=== PATIENT | female | born 1990 | race Caucasian/White ===

== ENCOUNTER 2020-10-21 16:38 | Emergency (ER) | payer OTHER ==
[2020-10-21] MEDS ORDERED: XYLOCAINE 1% HCL 20 ML MDV IJ ONE (16:39)
[2020-10-21 16:55] VITALS: BP 123/75; PULSE 91; O2SAT 97
[2020-10-21] MEDS ORDERED: Zithromax 250 MG TABLET PO ONE (17:16)
[2020-10-21] MEDS ORDERED: Rocephin 500 MG INJ IM ONE (17:16)
[2020-10-21] MEDS ORDERED: Rocephin 500 MG INJ ONE (17:25)
[2020-10-21] MEDS ORDERED: Zithromax 250 MG TABLET ONE (17:25)
--- NOTE | 2020-10-21 17:26 | ERPHSYRPT ---
- History of Present Illness Time Seen by Provider: 10/21/20 17:14 Source: patient Exam Limitations: no limitations Patient Subjective Stated Complaint: pt here for possible STI, she states that she as a white thick discharge, she has occ pelvic pain Triage Nursing Assessment: pt alert, resp easy, skin w/d/p. face mask in place, Physician History: 30 years old female with history of gonorrhea in the past presented in the ER with vaginal discharge for almost 1 week. Patient reports white creamy/milky discharge foul-smelling gradually worsening without any associated pelvic/abdominal cramping/pain. No fever or chills reported. No difficulty urination. Sexually active with one partner but is not sure about his loyalty. Timing/Duration: week(s) (1), gradual onset, worse Pain Radiation: none Sexual intercourse history: single partner Associated Symptoms: vaginal discharge Allergies/Adverse Reactions: Penicillins Allergy (Verified 10/21/20 16:55) Home Medications: No Reportable Medications [No Reported Medications] 10/21/20 [History] Hx Influenza Vaccination/Date Given: No Hx Pneumococcal Vaccination/Date Given: No Travel Risk - International Travel Have you traveled outside of the country in past 3 weeks: No - Coronavirus Screening Are you exhibiting any of the following symptoms?: No - Vaccine Status Have you recieved a Covid-19 vaccination: No - Review of Systems Constitutional: No Symptoms Ears, Nose, & Throat: No Symptoms Respiratory: No Symptoms Cardiac: No Symptoms Abdominal/Gastrointestinal: No Symptoms Genitourinary Symptoms: Vaginal Discharge Musculoskeletal: No Symptoms Skin: No Symptoms Neurological: No Symptoms Psychological: No Symptoms Hematologic/Lymphatic: No Symptoms Immunological/Allergic: No Symptoms - Past Medical History Pertinent Past Medical History: No - Past Surgical History Past Surgical History: No - Social History Smoking Status: Current every day smoker Exposure to second hand smoke: Yes Drug Use: marijuana Patient Lives Alone: No - Female History Hx Last Menstrual Period: september 27 Hx Now: No - Nursing Vital Signs Nursing Vital Signs: Initial Vital Signs Temperature 98.3 F 10/21/20 16:49 Pulse Rate 91 H 10/21/20 16:49 Respiratory Rate 16 10/21/20 16:49 Blood Pressure 123/75 10/21/20 16:49 O2 Sat by Pulse Oximetry 97 10/21/20 16:49 Pain Scale Pain Intensity 0 - Physical Exam General Appearance: no apparent distress, alert Ears, Nose, Throat Exam: pharynx normal Neck Exam: normal inspection, non-tender, supple, full range of motion Respiratory Exam: normal breath sounds, lungs clear Cardiovascular Exam: regular rate/rhythm, normal heart sounds Gastrointestinal/Abdomen Exam: soft, normal bowel sounds, No tenderness Extremity Exam: normal inspection, normal range of motion Neurologic Exam: alert, 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 Skin Exam: normal color SpO2 Interpretation: normal SpO2: 97 O2 Delivery: Room Air Ordered Tests: Active Orders 24 hr Category Date Time Status HCG,QUALITATIVE URINE Stat Lab 10/21/20 17:25 Ordered UA W/RFX UR CULTURE Stat Lab 10/21/20 17:25 Ordered Wet Prep Stat Lab 10/21/20 17:25 Ordered Medication Summary Discontinued Medications Generic Name Dose Route Start Last Admin Trade Name Robq PRN Reason Stop Dose Admin Azithromycin 1,000 mg 10/21/20 17:16 10/21/20 17:31 Zithromax 250 Mg Tablet PO 10/21/20 17:17 1,000 mg STAT ONE Administration Azithromycin Confirm 10/21/20 17:25 Zithromax 250 Mg Tablet Administered 10/21/20 17:26 Dose 1,000 mg .ROUTE .STK-MED ONE Ceftriaxone Sodium 500 mg 10/21/20 17:16 10/21/20 17:31 Rocephin 500 Mg Inj IM 10/21/20 17:17 500 mg STAT ONE Administration Ceftriaxone Sodium Confirm 10/21/20 17:25 Rocephin 500 Mg Inj Administered 10/21/20 17:26 Dose 500 mg .ROUTE .STK-MED ONE - Progress Progress: unchanged Air Movement: good Progress Note: 10/21/20 17:44 She is given Rocephin and Zithromax. Safe sex practices recommended. Blood Culture(s) Obtained: No Antibiotics given: Yes Counseled pt/family regarding: diagnosis, need for follow-up - Departure Departure Disposition: Home Clinical Impression: Vaginal discharge Condition: Stable Critical Care Time: No Referrals: DOCTOR,NO FAMILY [Primary Care Provider] - STONEY ALLRED [ACTIVE STAFF] - Follow Up with PCP/3 days Instructions: Pelvic Inflammatory Disease (DC), Screening for Sexually Transmitted Infections Additional Instructions: Follow safe sex practices. Follow-up with primary care physician or health department for further testing like HIV. Return to ER if do not see any improvement in symptoms or if develop abdominal pain/cramping/fever chills etc.
[2020-10-21 17:45] LABS: Bacteria Rare; Clue Cells None Seen; Red Blood Cells None Seen; Trichomonas None Seen; White Blood Cells Rare; Yeast None Seen
[2020-10-21 18:17] LABS: Appearance CLEAR (CLEAR); Bilirubin NEGATIVE (NEGATIVE); Blood NEGATIVE Ery/ul (0-5); Epithelial Cells RARE /HPF (FEW); Glucose NEGATIVE (NEGATIVE); Ketones TRACE (NEGATIVE); Leukocyte Esterase NEGATIVE (NEGATIVE); Mucus SLIGHT /HPF (NEGATIVE); Nitrite NEGATIVE (NEGATIVE); Protein,Urine Dip NEGATIVE (Negative); RBC 0-2 /HPF (0-2); Specific Gravity 1.032 (1.005-1.025); Urobilinogen 2 mg/dL (0-1); WBC 0-2 /HPF (0-5)
[2020-10-21 18:21] LABS: Bacteria NONE SEEN /HPF (NEGATIVE)
[2020-10-21 19:47] LABS: CHLAMYDIA DNA NOT DETECTED (NEGATIVE); GC DNA Probe NOT DETECTED (NEGATIVE)
== END 2020-10-21 18:17 | disposition home or self-care (01) ==
LOC: ED 16:38
DX: N89.8 Other specified noninflammatory disorders of vagina (principal)
CPT/HCPCS: 81001; 84703; 87210; 87491; 87591; 96372; 99284; J0696; A9270-GY

== ENCOUNTER 2021-01-11 22:48 | Emergency (ER) | payer OTHER ==
[2021-01-11] MEDS ORDERED: Rocephin 500 MG INJ IM ONE (23:05)
[2021-01-11] MEDS ORDERED: Vibramycin 100 MG PO ONE (23:06)
--- NOTE | 2021-01-11 23:34 | ERPHSYRPT ---
- History of Present Illness Time Seen by Provider: 01/11/21 23:10 Source: patient Exam Limitations: no limitations Patient Subjective Stated Complaint: pt states she has unprotected sex with a man 2 weeks ago and he told her today that he was positive for gonorrhea. states she has been having some cramping and discharge. Triage Nursing Assessment: pt alert and oriented, answers questions approp. pt ambulatory with steady gait noted. respirations nonlabored. skin warm and dry. Physician History: Patient is a 30-year-old female presents to emergency department for evaluation of suspected gonorrhea. Patient states she had unprotected sexual intercourse with a man 2 weeks ago. Patient was notified today that he tested positive for gonorrhea. Patient states she has been experiencing foul-smelling vaginal discharge and pelvic pressure. No fever. No rash. No nausea or vomiting. No abdominal pain. Symptoms are constant. Symptoms are moderate in intensity. No specific worsening improving factors. Patient voices no other complaints concerns at this time. Timing/Duration: day(s) (4 days) Severity: moderate Modifying Factors: Improves With: nothing Associated Symptoms: denies symptoms Allergies/Adverse Reactions: Penicillins Allergy (Verified 01/11/21 23:11) Rash Hx Tetanus, Diphtheria Vaccination/Date Given: Yes Hx Influenza Vaccination/Date Given: No Hx Pneumococcal Vaccination/Date Given: No Immunizations Up to Date: Yes Travel Risk - International Travel Have you traveled outside of the country in past 3 weeks: No - Coronavirus Screening Are you exhibiting any of the following symptoms?: No Close contact with a COVID-19 positive Pt in past 14-21 Days: No - Vaccine Status Have you recieved a Covid-19 vaccination: No - Review of Systems Constitutional: No Symptoms, No Fever, No Chills Eyes: No Symptoms Ears, Nose, & Throat: No Symptoms Respiratory: No Symptoms, No Cough, No Dyspnea Cardiac: No Symptoms, No Chest Pain, No Edema, No Syncope Abdominal/Gastrointestinal: No Symptoms, No Abdominal Pain, No Nausea, No Vomiting, No Diarrhea Genitourinary Symptoms: No Symptoms, No Dysuria Musculoskeletal: No Symptoms, No Back Pain, No Neck Pain Skin: No Symptoms, No Rash Neurological: No Symptoms, No Dizziness, No Focal Weakness, No Sensory Changes Psychological: No Symptoms Endocrine: No Symptoms Hematologic/Lymphatic: No Symptoms Immunological/Allergic: No Symptoms All Other Systems: Reviewed and Negative - Past Medical History Pertinent Past Medical History: No - Past Surgical History Past Surgical History: No - Social History Smoking Status: Current every day smoker How long have you smoked: 15 yrs Exposure to second hand smoke: Yes Drug Use: marijuana Patient Lives Alone: No - Female History Hx Last Menstrual Period: 12/26/20 Hx Now: No - Nursing Vital Signs Nursing Vital Signs: Initial Vital Signs Temperature 98.2 F 01/11/21 23:00 Pulse Rate 100 H 01/11/21 23:00 Respiratory Rate 18 01/11/21 23:00 Blood Pressure 122/75 01/11/21 23:00 O2 Sat by Pulse Oximetry 100 01/11/21 23:00 Pain Scale Pain Intensity 0 - Physical Exam General Appearance: no apparent distress, alert Eye Exam: PERRL/EOMI, eyes nml inspection Ears, Nose, Throat Exam: normal ENT inspection, TMs normal, pharynx normal, moist mucous membranes Neck Exam: normal inspection, non-tender, supple, full range of motion Respiratory Exam: normal breath sounds, lungs clear, No respiratory distress Cardiovascular Exam: regular rate/rhythm, normal heart sounds, normal peripheral pulses Gastrointestinal/Abdomen Exam: soft, normal bowel sounds, No tenderness, No mass Pelvic Exam: normal external exam, cervical motion tenderness (Mild cervical motion tenderness. Negative for chandelier sign.), other (Scant white vaginal discharge. Moderate foul odor.), No adnexal tenderness, No adnexal mass, No vaginal bleeding Back Exam: normal inspection, normal range of motion, No CVA tenderness, No vertebral tenderness Extremity Exam: normal inspection, normal range of motion, pelvis stable Neurologic Exam: alert, 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, cooperative, normal mood/affect, nml cerebellar function, nml station & gait, sensation nml, No motor deficits Skin Exam: normal color, warm, dry, No rash Lymphatic Exam: No adenopathy SpO2 Interpretation: normal SpO2: 100 O2 Delivery: Room Air - Course Nursing assessment & vital signs reviewed: Yes Ordered Tests: Active Orders 24 hr Category Date Time Status CULTURE,URINE Stat Lab 01/11/21 23:39 Received HCG,QUALITATIVE URINE Stat Lab 01/11/21 23:40 Received UA W/RFX UR CULTURE Stat Lab 01/11/21 23:39 Completed Wet Prep Stat Lab 01/11/21 23:39 Completed Medication Summary Discontinued Medications Generic Name Dose Route Start Last Admin Trade Name Jo-Ann PRN Reason Stop Dose Admin Ceftriaxone Sodium 500 mg 01/11/21 23:05 01/12/21 00:03 Rocephin 500 Mg Inj IM 01/11/21 23:06 500 mg STAT ONE Administration Ceftriaxone Sodium Confirm 01/11/21 23:42 Rocephin 500 Mg Inj Administered 01/11/21 23:43 Dose 500 mg .ROUTE .STK-MED ONE Doxycycline Hyclate 100 mg 01/11/21 23:06 01/12/21 00:03 Vibramycin 100 Mg PO 01/11/21 23:07 100 mg STAT ONE Administration Doxycycline Hyclate Confirm 01/11/21 23:42 Vibramycin 100 Mg Administered 01/11/21 23:43 Dose 100 mg .ROUTE .STK-MED ONE Lidocaine HCl Confirm 01/11/21 23:44 Xylocaine 1% Hcl 20 Ml Mdv Administered 01/11/21 23:45 Dose 2 ml .ROUTE .STK-MED ONE Metronidazole 500 mg 01/11/21 23:56 Flagyl 500 Mg PO 01/11/21 23:57 STAT ONE Lab/Rad Data: Laboratory Results 01/11/21 01/11/21 Range/Units 23:39 23:39 Urine Color YELLOW (YELLOW) Urine Appearance SLIGHTLY CLOUDY (CLEAR) Urine pH 7.0 (5-6) Ur Specific Mather 1.028 (1.005-1.025) Urine Protein 30 (Negative) Urine Ketones TRACE (NEGATIVE) Urine Blood NEGATIVE (0-5) García/ul Urine Nitrite NEGATIVE (NEGATIVE) Urine Bilirubin NEGATIVE (NEGATIVE) Urine Urobilinogen 4 (0-1) mg/dL Ur Leukocyte Esterase TRACE (NEGATIVE) Urine WBC (Auto) 3-5 (0-5) /HPF Urine RBC (Auto) 0-2 (0-2) /HPF U Epithel Cells (Auto) RARE (FEW) /HPF Urine Bacteria (Auto) NONE (NEGATIVE) /HPF Urine Mucus (Auto) SLIGHT (NEGATIVE) /HPF Urine Culture Reflexed YES (NO) Urine Glucose NEGATIVE (NEGATIVE) mg/dL WBC (Wet Prep) Few RBC (Wet Prep) Few Epi Cells (Wet Prep) Moderate Bacteria (Wet Prep) Rare Clue Cells (Wet Prep) None Seen Trichomonas (Wet Prep) Moderate Budding Yeast (Wet Prp) None Seen - Progress Progress: improved Progress Note: Patient reassessed. She feels well. No active pain. Patient declined pain medication. Patient was treated for her gonorrhea exposure. Patient received a dose of doxycycline to initiate coverage for chlamydia. Trichomonas positive. Patient received a 500 mg dose of Flagyl. A prescription for Flagyl and doxycycline forwarded to patient's pharmacy. Final results of GC chlamydia pending. However patient is covered otherwise. Will discharge home. Patient voices no other complaints concerns at this time. UA negative not suggestive of UTI. 01/12/21 00:08 Portions of this note were created with voice recognition technology. There may be grammatical, spelling, punctuation or sound alike errors 01/12/21 00:10 Counseled pt/family regarding: lab results, diagnosis, need for follow-up - Departure Departure Disposition: Home Clinical Impression: STI exposure, Exposure to gonorrhea, Trichomonal vaginitis Condition: Stable Critical Care Time: No Referrals: DOCTOR,NO FAMILY [Primary Care Provider] - MORGAN HARRINGTON [ACTIVE STAFF] - Additional Instructions: Discharge/Care Plan ROXANA JIMENEZ was seen on 01/12/21 in the Emergency Room. The patient was counseled regarding Diagnosis,Lab results, Imaging studies, need for follow up and when to return to the Emergency Room. Prescriptions given: Discharge Note I have spoken with the patient and/or caregivers. I have explained the patient's condition, diagnosis and treatment plan based on the information available to me at this time. I have answered the patient's and/or caregiver's questions and addressed any concerns. The patient and/or caregivers have as good understanding of the patient's diagnosis, condition and treatment plan as can be expected at this point. The vital signs have been stable. The patient's condition is stable and appropriate for discharge from the emergency department. The patient will pursue further outpatient evaluation with the primary care physician or other designated or consulting physician as outlined in the discharge instructions. The patient and/or caregivers are agreeable to this plan of care and follow-up instructions have been explained in detail. The patient and/or caregivers have received these instruction. The patient/and or caregivers are aware that any significant change in condition or worsening of symptoms should prompt an immediate return to this or the closest emergency department or call 911. Prescriptions: Metronidazole 500 mg [Flagyl 500 MG] 500 mg PO BID 7 Days #14 tablet Doxycycline Hyclate 100 mg [Vibramycin 100 MG] 100 mg PO BID #14 tab
[2021-01-11] MEDS ORDERED: Vibramycin 100 MG ONE (23:42)
[2021-01-11] MEDS ORDERED: Rocephin 500 MG INJ ONE (23:42)
[2021-01-11 23:43] LABS: Appearance SLIGHTLY CLOUDY (CLEAR); Bilirubin NEGATIVE (NEGATIVE); Blood NEGATIVE Ery/ul (0-5); Epithelial Cells RARE /HPF (FEW); Glucose NEGATIVE (NEGATIVE); Ketones TRACE (NEGATIVE); Leukocyte Esterase TRACE (NEGATIVE); Mucus SLIGHT /HPF (NEGATIVE); Nitrite NEGATIVE (NEGATIVE); Protein,Urine Dip 30 (Negative); RBC 0-2 /HPF (0-2); Specific Gravity 1.028 (1.005-1.025); Urobilinogen 4 mg/dL (0-1)
[2021-01-11] MEDS ORDERED: XYLOCAINE 1% HCL 20 ML MDV ONE (23:44)
[2021-01-11 23:46] LABS: Bacteria Rare; Clue Cells None Seen
[2021-01-11 23:47] LABS: Red Blood Cells Few; Trichomonas Moderate; White Blood Cells Few; Yeast None Seen
[2021-01-11] MEDS ORDERED: Flagyl 500 MG PO ONE (23:56)
[2021-01-12] MEDS ORDERED: Flagyl 500 MG ONE (00:05)
[2021-01-12 00:15] VITALS: BP 118/71; PULSE 74; O2SAT 99
[2021-01-12 01:10] LABS: CHLAMYDIA DNA NOT DETECTED (NEGATIVE); GC DNA Probe NOT DETECTED (NEGATIVE)
== END 2021-01-12 00:24 | disposition home or self-care (01) ==
LOC: ED 22:48
DX: Z20.2 Contact with and (suspected) exposure to infections with a predominantly sexual mode of transmission (principal); A59.01 Trichomonal vulvovaginitis
CPT/HCPCS: 81001; 84703; 87086; 87210; 87491; 87591; 96372; 99284; J0696; A9270-GY

== ENCOUNTER 2021-05-13 04:55 | Emergency (ER) | payer OTHER ==
[2021-05-13 05:13] VITALS: BP 112/74
[2021-05-13] MEDS ORDERED: TORAdol 30 mg Injection IV ONE (05:35)
[2021-05-13] MEDS ORDERED: DECADRON 10MG INJ. PO ONE (05:36)
[2021-05-13] MEDS ORDERED: TORAdol 30 mg Injection ONE (05:41)
[2021-05-13] MEDS ORDERED: DECADRON 10MG INJ. ONE (05:41)
[2021-05-13] MEDS ORDERED: Compazine 5 MG PO STA (05:44)
[2021-05-13] MEDS ORDERED: TORAdol 30 mg Injection IM ONE (05:56)
[2021-05-13 06:03] VITALS: PULSE 102; O2SAT 97
--- NOTE | 2021-05-13 06:16 | ERPHSYRPT ---
- History of Present Illness Time Seen by Provider: 05/13/21 05:20 Source: patient Exam Limitations: no limitations Patient Subjective Stated Complaint: " I haven't been able to get out of bed, I've been so weak all over and I have a cough. I think I have Covid." Triage Nursing Assessment: Pt presents to ER complaining of Covid19 Virus symptoms following recent exposure to the virus. Pt complains of all over weakness/fatigue, body aches, headaches, intermittent dry cough. Pt is alert and oriented x3. Ambulates without difficulty. Skin is pink, warm, and dry. Respirations are easy and unlabored at this time. Lungs clear throughout. Pt rates headache 10/10 scale. Pt complains of intermittent nausea. Physician History: Patient is a 30-year-old female presents to our emergency department with Covid- like symptoms. Patient is experiencing malaise body aches. She admits to Covid exposure. Patient has a mild headache. No fever. No shortness of breath. No nausea vomiting or diaphoresis. No diarrhea. No rash. Patient symptoms have been ongoing for 3 days. Symptoms are mild to moderate in intensity. No specific worsening improving factors. Patient significant other also has similar symptomology. Patient requesting a Covid test. Patient is otherwise healthy. She voices no other complaints or concerns at this time. Timing/Duration: day(s) (3 days) Severity: moderate Modifying Factors: Improves With: nothing Associated Symptoms: cough (Occasional intermittent cough.), headaches, malaise, No chest pain, No fever, No syncope, No seizure, No weakness Allergies/Adverse Reactions: Penicillins Allergy (Verified 05/13/21 05:13) Rash Hx Tetanus, Diphtheria Vaccination/Date Given: Yes Hx Influenza Vaccination/Date Given: No Hx Pneumococcal Vaccination/Date Given: No Immunizations Up to Date: Yes Travel Risk - International Travel Have you traveled outside of the country in past 3 weeks: No - Coronavirus Screening Are you exhibiting any of the following symptoms?: Yes Symptoms: Cough: New Onset, Headaches/Body Aches/Fatigue Close contact with a COVID-19 positive Pt in past 14-21 Days: Yes - Vaccine Status Have you recieved a Covid-19 vaccination: No - Review of Systems Constitutional: No Symptoms, No Fever, No Chills Eyes: No Symptoms Ears, Nose, & Throat: No Symptoms Respiratory: No Symptoms, No Cough, No Dyspnea Cardiac: No Symptoms, No Chest Pain, No Edema, No Syncope Abdominal/Gastrointestinal: No Symptoms, No Abdominal Pain, No Nausea, No Vomiting, No Diarrhea Genitourinary Symptoms: No Symptoms, No Dysuria Musculoskeletal: No Symptoms, No Back Pain, No Neck Pain Skin: No Symptoms, No Rash Neurological: No Symptoms, No Dizziness, No Focal Weakness, No Sensory Changes Psychological: No Symptoms Endocrine: No Symptoms Hematologic/Lymphatic: No Symptoms Immunological/Allergic: No Symptoms All Other Systems: Reviewed and Negative - Past Medical History Pertinent Past Medical History: No - Past Surgical History Past Surgical History: No - Social History Smoking Status: Current every day smoker How long have you smoked: 15 yrs Exposure to second hand smoke: No Drug Use: marijuana Patient Lives Alone: No - Female History Hx Last Menstrual Period: 04/20/21 Hx Now: No - Nursing Vital Signs Nursing Vital Signs: Initial Vital Signs Temperature 98.8 F 05/13/21 05:05 Pulse Rate 104 H 05/13/21 05:05 Respiratory Rate 20 05/13/21 05:05 Blood Pressure 112/74 05/13/21 05:05 O2 Sat by Pulse Oximetry 100 05/13/21 05:05 Pain Scale Pain Intensity 10 - Physical Exam General Appearance: no apparent distress, alert Eye Exam: PERRL/EOMI, eyes nml inspection Ears, Nose, Throat Exam: normal ENT inspection, TMs normal, pharynx normal, moist mucous membranes Neck Exam: normal inspection, non-tender, supple, full range of motion Respiratory Exam: normal breath sounds, lungs clear, airway intact, No respira tory distress Cardiovascular Exam: regular rate/rhythm, normal heart sounds, normal peripheral pulses Gastrointestinal/Abdomen Exam: soft, normal bowel sounds, No tenderness, No mass Back Exam: normal inspection, normal range of motion, No CVA tenderness, No vertebral tenderness Extremity Exam: normal inspection, normal range of motion, pelvis stable Neurologic Exam: alert, 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, cooperative, normal mood/affect, nml cerebellar function, nml station & gait, sensation nml, No motor deficits Skin Exam: normal color, warm, dry, No rash Lymphatic Exam: No adenopathy SpO2 Interpretation: normal SpO2: 97 O2 Delivery: Room Air - Course Nursing assessment & vital signs reviewed: Yes Ordered Tests: Active Orders 24 hr Category Date Time Status HCG,QUALITATIVE URINE Stat Lab 05/13/21 05:52 Ordered UA W/RFX UR CULTURE Stat Lab 05/13/21 05:52 Ordered Medication Summary Discontinued Medications Generic Name Dose Route Start Last Admin Trade Name Jo-Ann PRN Reason Stop Dose Admin Dexamethasone Sodium Phosphate 6 mg 05/13/21 05:36 05/13/21 05:55 Dexamethasone Sod Phosphate 10 Mg/Ml PO 05/13/21 05:37 6 mg STAT ONE Administration Dexamethasone Sodium Phosphate Confirm 05/13/21 05:41 Dexamethasone Sod Phosphate 10 Mg/Ml Administered 05/13/21 05:42 Dose 10 mg .ROUTE .STK-MED ONE Ketorolac Tromethamine 30 mg 05/13/21 05:35 05/13/21 05:56 Ketorolac Tromethamine 30 Mg/Ml Inj IV 05/13/21 05:36 Not Given STAT ONE Ketorolac Tromethamine Confirm 05/13/21 05:41 Ketorolac Tromethamine 30 Mg/Ml Inj Administered 05/13/21 05:42 Dose 30 mg .ROUTE .STK-MED ONE Ketorolac Tromethamine 30 mg 05/13/21 05:56 05/13/21 05:56 Ketorolac Tromethamine 30 Mg/Ml Inj IM 05/13/21 05:57 30 mg STAT ONE Administration Prochlorperazine 5 mg 05/13/21 05:44 05/13/21 05:55 Prochlorperazine Maleate 5 Mg Tablet PO 05/13/21 05:45 5 mg ONCE STA Administration - Progress Progress: improved Progress Note: Patient reassessed. Symptoms improved. Patient received an outpatient Covid swab. Patient was treated with Toradol dexamethasone and Compazine. Patient will be discharged home. She agrees to follow-up with her primary care doctor within 48 hours for reevaluation. She voices no other complaints or concerns at this time. Portions of this note were created with voice recognition technology. There may be grammatical, spelling, punctuation or sound alike errors. hCG negative 05/13/21 06:14 Counseled pt/family regarding: lab results, diagnosis, need for follow-up - Departure Departure Disposition: Home Clinical Impression: Viral syndrome, Exposure to COVID-19 virus Condition: Stable Critical Care Time: No Referrals: CALIN CRAWFORD NP [Primary Care Provider] - Follow up/PCP as directed Additional Instructions: Discharge/Care Plan ROXANA JIMENEZ was seen on 05/13/21 in the Emergency Room. The patient was counseled regarding Diagnosis,Lab results, Imaging studies, need for follow up and when to return to the Emergency Room. Prescriptions given: Discharge Note I have spoken with the patient and/or caregivers. I have explained the patient's condition, diagnosis and treatment plan based on the information available to me at this time. I have answered the patient's and/or caregiver's questions and addressed any concerns. The patient and/or caregivers have as good understanding of the patient's diagnosis, condition and treatment plan as can be expected at this point. The vital signs have been stable. The patient's condition is stable and appropriate for discharge from the emergency department. The patient will pursue further outpatient evaluation with the primary care physician or other designated or consulting physician as outlined in the discharge instructions. The patient and/or caregivers are agreeable to this plan of care and follow-up instructions have been explained in detail. The patient and/or caregivers have received these instruction. The patient/and or caregivers are aware that any significant change in condition or worsening of symptoms should prompt an immediate return to this or the closest emergency department or call 911.
[2021-05-13 06:18] LABS: Appearance CLOUDY (CLEAR); Bilirubin NEGATIVE (NEGATIVE); Blood SMALL Ery/ul (0-5); Epithelial Cells RARE /HPF (FEW); Glucose NEGATIVE (NEGATIVE); Ketones NEGATIVE (NEGATIVE); Leukocyte Esterase NEGATIVE (NEGATIVE); Mucus SLIGHT /HPF (NEGATIVE); Nitrite NEGATIVE (NEGATIVE); Protein,Urine Dip NEGATIVE (Negative); Specific Gravity 1.019 (1.005-1.025); Urobilinogen NEGATIVE mg/dL (0-1); WBC 0-2 /HPF (0-5)
[2021-05-13 06:20] LABS: Amourphous Crystal MANY /HPF (NEGATIVE)
== END 2021-05-13 06:45 | disposition home or self-care (01) ==
LOC: ED 04:55
DX: B34.9 Viral infection, unspecified (principal); R05.9 Cough, unspecified; R51.9 Headache, unspecified; M79.10 Myalgia, unspecified site; Z20.822 Contact with and (suspected) exposure to COVID-19; Z72.0 Tobacco use
CPT/HCPCS: 81001; 84703; 96372; 99284; U0003; J1100; J1885; A9270-GY

== ENCOUNTER 2021-05-20 16:03 | Emergency (ER) | payer OTHER ==
[2021-05-20 16:17] VITALS: O2SAT 100
[2021-05-20] MEDS ORDERED: Reglan 10 MG/2 ML IV ONE (16:34)
[2021-05-20] MEDS ORDERED: Sodium Chloride 0.9% 1000 ML 1,000 ML IV STA (16:34)
[2021-05-20] MEDS ORDERED: TORAdol 30 mg Injection IV ONE (16:34)
[2021-05-20] MEDS ORDERED: BENADRYL 50 MG/ML IV ONE (16:34)
[2021-05-20] MEDS ORDERED: TYLENOL 325 MG PO ONE (16:34)
--- NOTE | 2021-05-20 16:39 | ERPHSYRPT ---
- History of Present Illness Time Seen by Provider: 05/20/21 16:15 Source: patient Exam Limitations: no limitations Patient Subjective Stated Complaint: Headache- COVID POSITIVE Triage Nursing Assessment: Patient ambulated back to ED and transferred self to bed. Patient A+O X3. Patient's skin pink, warm and dry. Patient COVID positive as of 6 days ago. Patient complains of headache 10/10 crying pain. Patient complains of N/V also. Patient states headache started last night and has gotten worse throughout the day. Physician History: 30-year-old female with history of migraines, recently COVID-19 positive presented in the ER with frontal headache since yesterday, moderate to severe sharp throbbing, aggravated with bright light, noise, movements and no significant relieving factors. This morning started to have multiple episodes of nonprojectile, nonbilious vomiting without hematemesis. Headache is similar to previous episodes, does not think this is the worst headache of her life. Denies any blurry vision/diplopia/numbness tingling or focal weakness. Timing/Duration: yesterday, constant, gradual onset, worse Quality: sharpness Head Pain Location: frontal Severity of Pain-Max: severe Severity of Pain-Current: severe Recent Head Trauma: no recent headache/trauma Modifying Factors: Worsens With: exposure to light, movement, noise Associated Symptoms: nausea/vomiting, sensitive to light, No fever/chills, No light-headedness, No loss of consciousness, No nasal congestion, No neck pain, No numbness in legs/feet, No seizures, No sinus infection, No speech problems, No stiff neck, No trouble walking, No vision changes, No visual disturbance Previous symptoms: same symptoms as today Allergies/Adverse Reactions: Penicillins Allergy (Verified 05/20/21 16:08) Rash Home Medications: No Reportable Medications [No Reported Medications] 05/20/21 [History] Hx Tetanus, Diphtheria Vaccination/Date Given: Yes Hx Influenza Vaccination/Date Given: No Hx Pneumococcal Vaccination/Date Given: No Immunizations Up to Date: Yes Travel Risk - International Travel Have you traveled outside of the country in past 3 weeks: No - Coronavirus Screening Are you exhibiting any of the following symptoms?: Yes Symptoms: Headaches/Body Aches/Fatigue Close contact with a COVID-19 positive Pt in past 14-21 Days: No - Vaccine Status Have you recieved a Covid-19 vaccination: No - Review of Systems Constitutional: No Symptoms Eyes: No Symptoms Ears, Nose, & Throat: No Symptoms Respiratory: No Symptoms Cardiac: No Symptoms Abdominal/Gastrointestinal: Nausea, Vomiting, No Abdominal Pain Genitourinary Symptoms: No Symptoms Musculoskeletal: No Symptoms Skin: No Symptoms Neurological: Headache Psychological: No Symptoms Endocrine: No Symptoms Hematologic/Lymphatic: No Symptoms - Past Medical History Pertinent Past Medical History: No - Past Surgical History Past Surgical History: No - Social History Smoking Status: Current every day smoker How long have you smoked: 15 yrs Exposure to second hand smoke: No Drug Use: marijuana Patient Lives Alone: No - Female History Hx Last Menstrual Period: currently Hx Now: No - Nursing Vital Signs Nursing Vital Signs: Initial Vital Signs Temperature 98.4 F 05/20/21 16:09 Pulse Rate 86 05/20/21 16:09 Respiratory Rate 18 05/20/21 16:09 Blood Pressure 120/77 05/20/21 16:09 O2 Sat by Pulse Oximetry 100 05/20/21 16:09 Pain Scale Pain Intensity 10 - Physical Exam General Appearance: no apparent distress, alert Eye Exam: PERRL/EOMI, eyes nml inspection Ears, Nose, Throat Exam: normal ENT inspection, TMs normal, pharynx normal, moist mucous membranes Neck Exam: normal inspection, non-tender, supple, full range of motion Respiratory Exam: normal breath sounds, lungs clear Cardiovascular Exam: regular rate/rhythm, normal heart sounds Gastrointestinal/Abdominal Exam: soft, normal bowel sounds, No tenderness Back Exam: normal inspection, normal range of motion Extremity Exam: normal inspection, normal range of motion Mental Status Exam: alert, 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, 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 Exam: normal hearing, normal speech, PERRL, No facial asymmetry Coordination/Gait Exam: normal finger to nose, normal gait, normal cerebellar function, negative Romberg's sign Motor/Sensory Exam: no motor deficit, no sensory deficit, no pronator drift, negative Babinski's sign DTR Exam: bicep (R): 2+, bicep (L): 2+, knee (R): 2+, knee (L): 2+ Skin Exam: normal color SpO2 Interpretation: normal SpO2: 100 O2 Delivery: Room Air Ordered Tests: Active Orders 24 hr Category Date Time Status IV Insertion STAT Care 05/20/21 16:34 Ordered - Progress Progress: improved Air Movement: good Progress Note: 05/20/21 30-year-old is evaluated for worsening headache/migraine since yesterday with multiple episodes of nausea vomiting. Nonfocal neuro exam. Headache is similar to previous episodes. Given symptomatic treatment, feeling better. She is Covid positive and that might be exacerbating her headache. Nonfocal neuro exam otherwise, do not think needs any other imaging or work-up. Stable for discharge. Blood Culture(s) Obtained: No Antibiotics given: No Counseled pt/family regarding: diagnosis, need for follow-up - Departure Departure Disposition: Home Clinical Impression: Migraine, Exposure to COVID-19 virus Condition: Stable Critical Care Time: No Referrals: CALIN CRAWFORD NP [Primary Care Provider] - Follow Up with PCP/3 days Instructions: Headache, Adult (DC) Additional Instructions: Take Tylenol/ibuprofen as needed for headache. Follow-up with primary care for reevaluation early next week. Return to ER for worsening headache, difficulty movements of neck, numbness tingling focal weakness, blurry vision, difficulty speech etc.
[2021-05-20] MEDS ORDERED: BENADRYL 50 MG/ML ONE (16:44)
[2021-05-20] MEDS ORDERED: TYLENOL 325 MG ONE (16:44)
[2021-05-20] MEDS ORDERED: Sodium Chloride 0.9% 1000 ML 1,000 ML ONE (16:44)
[2021-05-20] MEDS ORDERED: TORAdol 30 mg Injection ONE (16:44)
[2021-05-20] MEDS ORDERED: Reglan 10 MG/2 ML ONE (16:44)
[2021-05-20 18:34] VITALS: BP 119/72; PULSE 90
== END 2021-05-20 18:33 | disposition home or self-care (01) ==
LOC: ED 16:03
DX: G43.909 Migraine, unspecified, not intractable, without status migrainosus (principal); Z20.822 Contact with and (suspected) exposure to COVID-19; R11.2 Nausea with vomiting, unspecified; Z72.0 Tobacco use
CPT/HCPCS: 36000; 96360; 96374; 96375; 99284; J1200; J1885; A9270-GY